=== PATIENT | male | born 1970 | race Caucasian/White ===

== ENCOUNTER 2017-07-10 17:36 | Emergency (ER) | payer MEDICARE, MEDICAID ==
[~2017-07-10] VITALS: Ht 177.8 cm; Wt 90.4 kg
[2017-07-10 18:14] VITALS: BP 136/87
[2017-07-10] MEDS ORDERED: SODIUM CHLORIDE FLUSH 10ML SYR IVF ONE (18:30)
[2017-07-10 18:41] LABS: HEMOGLOBIN 16.3 g/dL (13.7-18.0); WHITE BLOOD COUNT 8.1 x10^3/uL (3.4-10)
[2017-07-10 18:51] LABS: BLOOD UREA NITROGEN 13 mg/dL (7-18)
[2017-07-10 18:55] LABS: IS PT STATUS REG ER OR PRE ER? YES
== END 2017-07-10 19:25 | disposition home or self-care (01) ==
LOC: ED 19:19
DX: R07.89 Other chest pain (principal); Z88.0 Allergy status to penicillin; Z88.1 Allergy status to other antibiotic agents; Z88.2 Allergy status to sulfonamides; Z87.891 Personal history of nicotine dependence
CPT/HCPCS: 36415; 71020; 80048; 81003; 82040; 84484; 85025; 93005; 99285

== ENCOUNTER 2017-09-15 21:57 | Emergency (ER) | payer MEDICARE, MEDICAID ==
[~2017-09-15] VITALS: Ht 177.8 cm; Wt 95.1 kg
[2017-09-15 22:03] VITALS: BP 144/92
== END 2017-09-16 00:02 | disposition home or self-care (01) ==
LOC: ED 23:59
DX: L25.9 Unspecified contact dermatitis, unspecified cause (principal); Z88.0 Allergy status to penicillin; Z88.1 Allergy status to other antibiotic agents; Z88.8 Allergy status to other drugs, medicaments and biological substances
CPT/HCPCS: 99283

== ENCOUNTER 2018-04-24 19:03 | Emergency (ER) | payer MEDICARE, MEDICAID ==
[~2018-04-24] VITALS: Ht 177.8 cm; Wt 97.9 kg
[2018-04-24 19:05] VITALS: BP 148/103
== END 2018-04-24 19:26 | disposition home or self-care (01) ==
LOC: ED 19:05
DX: R21 Rash and other nonspecific skin eruption (principal); L85.3 Xerosis cutis
CPT/HCPCS: 99283

== ENCOUNTER 2019-09-18 00:05 | Emergency (ER) | payer MEDICARE, MEDICAID ==
[~2019-09-18] VITALS: Ht 177.8 cm; Wt 92.0 kg
[2019-09-18 00:15] VITALS: BP 127/92
== END 2019-09-18 01:01 | disposition home or self-care (01) ==
LOC: ED 00:30
DX: B86 Scabies (principal)
CPT/HCPCS: 99283

== ENCOUNTER 2019-09-23 08:41 | Emergency (ER) | payer MEDICARE, MEDICAID ==
[~2019-09-23] VITALS: Ht 177.8 cm; Wt 97.8 kg
[2019-09-23 08:42] VITALS: BP 133/93
[2019-09-23] MEDS ORDERED: DIPH,PERTUSS(ACELL),TET VAC/PF 0.5 ML IM-VACC ONE ×2 (08:58→09:00)
[2019-09-23] MEDS ORDERED: NEOSPORIN OINT. PKT 1 PACKET ONE (09:03)
--- NOTE | 2019-09-23 09:08 | NUR ---
Pt noted to have small puncture wound to Right Second Digit secondary to opening can of chicken two days ago. No bleeding, redness or drainage noted, full ROM noted. Pt given Tetanus vaccine as ordered. retail pos specialist at bedside to clean and dress wound. Reviewed discharge instructions and prescription x 1 w/ pt, verbalized understanding to information provided including wound care and follow up care, denied questions/concerns. Pt ambulated from ED w/ mother.
== END 2019-09-23 09:16 | disposition home or self-care (01) ==
LOC: ED 08:53
DX: S61.230A Puncture wound without foreign body of right index finger without damage to nail, initial encounter (principal); L03.011 Cellulitis of right finger; X58.XXXA Exposure to other specified factors, initial encounter; Y93.89 Activity, other specified; Y92.009 Unspecified place in unspecified non-institutional (private) residence as the place of occurrence of the external cause; Y99.8 Other external cause status
CPT/HCPCS: 90471; 90715

== ENCOUNTER 2019-10-10 19:51 | Emergency (ER) | payer MEDICARE, MEDICAID ==
[~2019-10-10] VITALS: Ht 177.8 cm; Wt 92.6 kg
[2019-10-10 19:53] VITALS: BP_DIAS 95
[2019-10-10 21:16] VITALS: BP_SYST 79
--- NOTE | 2019-10-10 21:19 | NUR ---
Pt in [place], pt's mother at bedside, side rails up and call light within reach.
== END 2019-10-10 21:48 | disposition home or self-care (01) ==
LOC: ED 21:26
DX: J20.8 Acute bronchitis due to other specified organisms (principal)
CPT/HCPCS: 71046; 99283